=== PATIENT | male | born 1955 | race Caucasian/White ===

== ENCOUNTER → 2017-09-24 | Outpatient (CLI) | payer OTHER ==
[~2017-09-24] MED LIST: AMLO-99 PO; ASCO-182 PO; ASPI81TA94 PO; ATEN-65 PO; ATOR10TA65 PO; AZIT-17 PO; BLOO1STR16 MC; CEFU500T50 PO; CLIN300C99 PO; CYA1000 PO; FLU45SYR17 IM; FLU45SYR25 IM ONLY; GLIP10TA26 PO; INSU100I30; INSU100I30 SQ; LANI SUBQ; LEVO137T23 PO; LEVO25TA57 PO; LEVO300T27 PO; LEVO750T44 PO; METF-420 PO; MULT-1372 PO; NEED-653; RAMI10CA52 PO; RIVA20TA PO; SITA100T PO; SITA1TBM4 PO; TADA20TA33 PO; TEST1PAT7 TD; VIT-7 PO
[2017-09-24 09:39] LABS: PLATELET COUNT, AUTOMATED 214 K/uL (150-450)
[2017-09-24 10:03] LABS: LDL CHOLESTEROL 50 mg/dl
== END ==
LOC: LAB 09:21
PROVIDERS: ATTEND Internal Medicine
DX: I48.91 Unspecified atrial fibrillation (principal); R79.89 Other specified abnormal findings of blood chemistry; E03.9 Hypothyroidism, unspecified; E11.9 Type 2 diabetes mellitus without complications; I10 Essential (primary) hypertension
CPT/HCPCS: 36415; 82040; 82247; 82310; 82374; 82435; 82465; 82565; 82947; 83036; 83718; 84075; 84132; 84155; 84295; 84443; 84450; 84460; 84478; 84520; 85025

== ENCOUNTER 2017-11-20 14:39 | Outpatient (RCR) | payer OTHER ==
[~2017-11-20] VITALS: Ht 182.9 cm; Wt 131.5 kg
[~2017-11-20 14:39] MED LIST changes: -METF-420 PO; +METF-421 PO
--- NOTE | 2017-11-21 15:55 | Medical Nutrition Therapy ---
Nutrition Anthropometrics Height (Inches): 72 (stated) Weight (Pounds): 290 (stated) BMI: 39 Star Nutrition Score: Star Nutrition Risk Score: Dietary Referral Nutrition Risk Factors: Nutrition Risk Comment: Nutrition/Food History Breakfast: 1 1/2c herrios, whole banana, 1/2c whole milk Lunch: 4 sl deli ham, 2 sl cheese, apple Dinner: 4-6 oz meal, 1 1/2c starch, veggies, Snacks: nuts or entire bag of chips before dinner, jerky, chees, fruit, ice cream Nutritional Education Nutrition Education Topic: Diabetic Nutrition Learning Readiness: Interested Teaching Methods: Discussion, Handout, Demonstration Response to Teaching: Verbalize understanding Teaching Recipient: Patient, Significant Other Nutrition Counseling: Pt has been diabetic for several years, never recieved education. Pt states currently is in a high stress environment both at work and home. Lat A1C 13. This would equate to an average BG of 326. Discussed how high stress can affect BG and recommended meditation, exercise or other method of relaxation to help with stress. Obtained typical day intake. Recommend change to breakfast sandwich rather than cereal for lower glycemic response. Pt eats a small breakfast and lunch then eats a large snack and supper. Encouraged pt to increase his intake at brft and lunch, have a small afternoon snack, supper and another small HS snack. Pt would like to lose wt. Reviewed CHO counting and plate method. Recommend 45- 60gmCHO at each meal with 20gm CHO PM and HS snack. Pt did not think he needed class on med management or Glucometer but is scheudled for the Living with Diabetes class on 12/04 and Nutrition class on 12/18. Nutrition Monitoring & Eval RD Patient Assessment Time: 60 minutes Nutritional Comment: Provided 75 minutes diabetic education focusing on nutrtion, behavioural goals and support plan. Copies To Copies to: CHANTELLE FERNANDEZ MD, BETH November 20, 2017 17:35
--- NOTE | 2017-12-04 17:39 | Medical Nutrition Therapy ---
Nutrition Anthropometrics Height (Inches): 72 (stated) Weight (Pounds): 290 (stated) BMI: 39 Star Nutrition Score: Star Nutrition Risk Score: Dietary Referral Nutrition Risk Factors: Nutrition Risk Comment: Physical Findings Physical Appearance: Obese BMI 30-39 Skin Appearance Skin Appearance: Edema Edema Location Modifier: Edema Location: Type of Edema: Degree of Edema: Gastrointestinal Symptoms GI Symtoms: Tube Present: Bowel Sounds: Recent Bowel Pattern: Stool Characteristics: Nutritional Education Nutrition Education Topic: Other Learning Barriers: Hx Of Non-Compliance Learning Readiness: Interested Teaching Methods: Discussion, Handout, Demonstration Response to Teaching: Verbalize understanding Teaching Recipient: Patient Nutrition Monitoring & Eval RD Patient Assessment Time: [address] Assessment Type: RD Education Nutritional Comment: 11/20/17 Provided 75 minutes diabetic education focusing on nutrtion, behavioural goals and support plan. 12/04/17 Pt diagnosed with T2DM many years ago. States that he has not taken care of his diabetes and his most recent A1c is 11%. Pt instructed on Living with Diabetes topics including foot care, terminal operations supervisor complications, exercise, hypoglycemia, sick day care, etc. Pt appears interested in diabetes topics and able to answer questions regarding topics covered. I personally spent a total of 60 minutes educating/counseling patient regarding diabetes self-management in a group setting. See education section and my note above for details. Copies To Copies to: CHANTELLE FERNANDEZ MD, DIANNE Dec 04, 2017 17:39
--- NOTE | 2017-12-19 08:09 | Medical Nutrition Therapy ---
Nutritional Education Nutrition Education Topic: Diabetic Nutrition Learning Readiness: Interested Teaching Methods: Discussion, Handout, Demonstration Response to Teaching: Verbalize understanding Teaching Recipient: Patient Nutrition Counseling: Provided group diabetes education on nutrition. Reviewed: process of digestion; function of CHO, protein and fat; glycemic index; reading labels, portion sizes; heart healthy intake; eating out, alcohol. Nutrition Monitoring & Eval RD Patient Assessment Time: [address] Assessment Type: RD Education Nutritional Comment: 12/19 Provided 60 minutes diabetes education focusing on nutrition. Copies To Copies to: CHANTELLE FERNANDEZ MD, BETH Dec 19, 2017 08:09
== END 2017-12-25 ==
LOC: DIET 14:39
PROVIDERS: ATTEND Internal Medicine
DX: E11.65 Type 2 diabetes mellitus with hyperglycemia (principal); Z71.3 Dietary counseling and surveillance
CPT/HCPCS: G0108; G0109

== ENCOUNTER → 2018-08-11 | Outpatient (CLI) | payer OTHER ==
[~2018-08-11] MED LIST changes: +AMLO-127 PO; -AMLO-99 PO; +FLAS1EAC2 TD; +FLAS1KIT2; +GLIP-179 PO; -GLIP10TA26 PO; -METF-421 PO; +METF-452 PO; +NEED-653 ASDIRECTED; -RAMI10CA52 PO; +RAMI10CA9 PO; +TEST1PAT3 TD; -TEST1PAT7 TD
[2018-08-11 09:38] LABS: PLATELET COUNT, AUTOMATED 222 K/uL (150-450)
[2018-08-11 12:46] LABS: LDL CHOLESTEROL 52 mg/dl
== END ==
LOC: LAB 09:06
PROVIDERS: ATTEND Internal Medicine
DX: E29.1 Testicular hypofunction (principal); I48.91 Unspecified atrial fibrillation; I10 Essential (primary) hypertension; E11.9 Type 2 diabetes mellitus without complications; E78.5 Hyperlipidemia, unspecified; E03.9 Hypothyroidism, unspecified; G47.33 Obstructive sleep apnea (adult) (pediatric)
CPT/HCPCS: 36415; 81001; 82040; 82043; 82247; 82310; 82374; 82435; 82465; 82565; 82947; 83036; 83718; 84075; 84132; 84153; 84155; 84295; 84403; 84443; 84450; 84460; 84478; 84520; 85025

== ENCOUNTER → 2018-11-04 | Outpatient (CLI) | payer OTHER ==
[~2018-11-04] MED LIST changes: +INSU100I28 SQ
== END ==
LOC: LAB 08:00
PROVIDERS: ATTEND Internal Medicine
DX: E03.9 Hypothyroidism, unspecified (principal); E78.5 Hyperlipidemia, unspecified; E11.9 Type 2 diabetes mellitus without complications
CPT/HCPCS: 36415; 82040; 82247; 82310; 82374; 82435; 82565; 82947; 83036; 84075; 84132; 84155; 84295; 84450; 84460; 84520

== ENCOUNTER 2018-12-02 12:06 | Outpatient (RCR) | payer OTHER ==
[~2018-12-02] VITALS: Ht 182.9 cm; Wt 119.3 kg
--- NOTE | 2018-12-02 16:06 | Medical Nutrition Therapy ---
Nutrition Anthropometrics Height (Inches): 72 Weight (Pounds): 263 Star Nutrition Score: Star Nutrition Risk Score: Dietary Referral Nutrition Risk Factors: Nutrition Risk Comment: Nutritional Education Nutrition Education Topic: Diabetic Nutrition Learning Readiness: Interested Teaching Methods: Discussion, Handout Response to Teaching: Verbalize understanding Teaching Recipient: Patient, Significant Other Nutrition Counseling: Pt and attended session. Pt had went thru diabetes self management classes last year and desired additional education on nutition, insulin. Pt's A1c declined to 8.8 from 13. pt reported 30# wt loss. Pt recieved a free style romulo and has noted various foods that increase his BG. Reviewed glycemic index and provided handout of what it is and list of GI of various foods. Reiviewed how to read food labels and role of fiber. Pt stated has just strated humalog with meals but pt is having a C peptide done to see if he needs mealtime insulin. Discussed how to use correction doses with mealtime insulin. Discussed insulin pump as an alternative if pt cont on multiple shots/day. Pt declined further classes or individual session stated his questions were answered. Pt advised to call if he had additional issues. Nutrition Monitoring & Eval RD Patient Assessment Time: [address] Assessment Type: RD Education Nutritional Comment: [id number] minutes dieabete eduction focusing on insulin and nutrition. Copies To Copies to: CHANTELLE FERNANDEZ MD ; ANA CHEN 4, 2019 16:06
[2018-12-31] MEDS ORDERED: RAMI10CA9 PO (10:19)
[2018-12-31] MEDS ORDERED: ATEN-65 PO (10:19)
[2018-12-31] MEDS ORDERED: AMLO-127 PO (10:19)
[2018-12-31] MEDS ORDERED: SITA1TBM4 PO (10:19)
== END 2018-12-31 12:51 | disposition home or self-care (01) ==
LOC: DIET 12:06
PROVIDERS: ATTEND Internal Medicine
DX: E11.9 Type 2 diabetes mellitus without complications (principal); Z71.3 Dietary counseling and surveillance
CPT/HCPCS: G0108 ×2

== ENCOUNTER → 2019-02-17 | Outpatient (CLI) | payer OTHER ==
[~2019-02-17] MED LIST changes: +LEV125 PO
[2019-02-17 08:06] LABS: PLATELET COUNT, AUTOMATED 215 K/uL (150-450)
[2019-02-17 08:37] LABS: LDL CHOLESTEROL 53 mg/dl
== END ==
LOC: LAB 07:32
PROVIDERS: ATTEND Internal Medicine
DX: I10 Essential (primary) hypertension (principal); E11.9 Type 2 diabetes mellitus without complications; E78.5 Hyperlipidemia, unspecified; E03.9 Hypothyroidism, unspecified; G47.33 Obstructive sleep apnea (adult) (pediatric)
CPT/HCPCS: 36415; 81001; 82040; 82043; 82247; 82310; 82374; 82435; 82465; 82565; 82947; 83036; 83718; 84075; 84132; 84155; 84295; 84439; 84443; 84450; 84460; 84478; 84520; 84681; 85025